=== PATIENT | male | born 1990 | race Caucasian/White ===

== ENCOUNTER → 2025-05-29 14:41 | Outpatient (CLI) | payer OTHER, SELFPAY ==
--- NOTE | 2025-05-29 14:43 | DI.RAD.S_ITS ---
PROCEDURE: XR CHEST 2V
== END ==
PROVIDERS: PCP Physician Assistant Medical; Referring Provider Registered Nurse; Visit Provider Registered Nurse
DX: R07.9 Chest pain, unspecified (principal)
CPT/HCPCS: 71046